=== PATIENT | female | born 1990 | race Caucasian/White ===

== ENCOUNTER 2016-05-20 13:59 | Emergency (ER) | payer OTHER, BC ==
--- NOTE | 2016-05-20 14:29 | EDM.PDOC ---
ED HPI GENERAL MEDICAL PROBLEM - General Chief Complaint: Chest Pain Stated Complaint: CHEST PAIN Time Seen by Provider: 05/20/16 14:20 - History of Present Illness INITIAL COMMENTS - FREE TEXT/NARRATIVE: HISTORY AND PHYSICAL: History of present illness: Patient is a 25-year-old female who presents with shortness of breath and chest pain patient is approximately 28 weeks she denies abdominal pain vaginal discharge bleeding back pain or other concerns she denies history of DVT or pulmonary embolism she denies history of asthma or any lung disease she' s had no fever chills nausea, or other complaints. Review of systems: As per history of present illness and below otherwise all systems reviewed and negative. Past medical history: As per history of present illness and as reviewed below otherwise noncontributory. Surgical history: As per history of present illness and as reviewed below otherwise noncontributory. Social history: No reported history of drug or alcohol abuse. Family history: As per history of present illness and as reviewed below otherwise noncontributory. Physical exam: HEENT: Atraumatic, normocephalic, pupils reactive, negative for conjunctival pallor or scleral icterus, mucous membranes moist, throat clear, neck supple, nontender, trachea midline. Lungs: Clear to auscultation, breath sounds equal bilaterally, chest nontender. Heart: S1S2, regular, negative for clicks, rubs, or JVD. Abdomen: Soft, gravid uterus consistent with dates nontender. Negative for masses or hepatosplenomegaly. Negative for costovertebral tenderness. Pelvis: Stable nontender. Genitourinary: Deferred. Rectal: Deferred. Extremities: Atraumatic, negative for cords or calf pain. Neurovascular unremarkable. Neuro: Awake, alert, oriented. Cranial nerves II through XII unremarkable. Cerebellum unremarkable. Motor and sensory unremarkable throughout. Exam nonfocal. Diagnostics: CBC CMP EKG tocograph monitoring CT Yessi chest rule out PE Therapeutics: IV O2 monitor Impression: #1 3 trimester #2 chest pain with dyspnea Definitive disposition and diagnosis as appropriate pending reevaluation and review of above. chest pain Pain Score (Numeric/FACES): 6 - Related Data Allergies Allergy/AdvReac Type Severity Reaction Status Date / Time No Known Allergies Allergy Verified 05/20/16 14:08 Home Meds: Home Meds . 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 ED EXAM, GENERAL - Physical Exam Exam: See Below (See dictation) Course - Vital Signs Text/Narrative:: Case was discussed with private DATA SECURITY COORDINATOR doctor Savanna who agrees with evaluation for pulmonary embolism inclusive of appropriate studies in this case CT angiography chest per PE protocol I discussed with DATA SECURITY COORDINATOR he discussion of risk- benefit and related issues with patient and family. Patient has yet to decide decision regarding diagnostics. Last Recorded V/S: Last Vital Signs Temp 36.5 C 05/20/16 14:10 Pulse 87 05/20/16 14:10 Resp 24 H 05/20/16 14:10 BP 124/79 05/20/16 14:10 Pulse Ox 98 05/20/16 14:10 - Orders/Labs/Meds Orders: Active Orders 24 hr Category Date Time Status Cardiac Monitoring [RC] . DIRECTED Care 05/20/16 14:41 Active EKG Documentation Completion [RC] STAT Care 05/20/16 14:04 Active Labs: Laboratory Tests 05/20/16 05/20/16 Range/Units 14:13 14:13 WBC 14.45 H (4.0-11.0) K/uL RBC 4.23 L (4.30-5.90) M/uL Hgb 11.6 L (12.0-16.0) g/dL Hct 35.3 L (36.0-46.0) % MCV 83.5 (80.0-98.0) fL MCH 27.4 (27.0-32.0) pg MCHC 32.9 (31.0-37.0) g/dL RDW Std Deviation 40.8 (28.0-62.0) fl RDW Coeff of Beth 14 (11.0-15.0) % Plt Count 286 (150-400) K/uL MPV 10.10 (7.40-12.00) fL Neut % (Auto) 79.6 (48.0-80.0) % Lymph % (Auto) 13.6 L (16.0-40.0) % [place] % (Auto) 5.5 (0.0-15.0) % Eos % (Auto) 1.2 (0.0-7.0) % Baso % (Auto) 0.1 (0.0-1.5) % Neut # (Auto) 11.5 H (1.4-5.7) K/uL Lymph # (Auto) 2.0 (0.6-2.4) K/uL [place] # (Auto) 0.8 (0.0-0.8) K/uL Eos # (Auto) 0.2 (0.0-0.7) K/uL Baso # (Auto) 0.0 (0.0-0.1) K/uL Nucleated RBC % 0.0 /100WBC Nucleated RBCs # 0 K/uL Sodium 137 (136-146) mmol/L Potassium 3.5 (3.5-5.1) mmol/L Chloride 105 (98-110) mmol/L Carbon Dioxide 23 (21-31) mmol/L BUN 7 (6.0-23.0) mg/dL Creatinine 0.7 (0.6-1.5) mg/dL Est Cr Clr Drug Dosing 120.51 mL/min Estimated GFR (MDRD) > 60.0 ml/min Glucose 99 (60-110) mg/dL Calcium 9.4 (8.8-10.8) mg/dL Total Bilirubin 0.3 (0.1-1.5) mg/dL AST 12 (5-40) IU/L ALT 10 (8-54) IU/L Alkaline Phosphatase 98 (40-150) Total Protein 7.2 (6.0-8.0) g/dL Albumin 3.6 (3.5-5.0) g/dL Globulin 3.6 H (2.0-3.5) g/dL Albumin/Globulin Ratio 1.0 L (1.3-2.8) Departure - Departure Time of Disposition: 16:03 Disposition: Home, Self-Care 01 Condition: good Clinical Impression: Atypical chest pain, Third trimester Forms: ED Department Discharge Additional Instructions: The following information is given to patients seen in the emergency department who are being discharged to home. This information is to outline your options for follow-up care. We provide all patients seen in our emergency department with a follow-up referral. The need for follow-up, as well as the timing and circumstances, are variable depending upon the specifics of your emergency department visit. If you don't have a primary care physician on staff, we will provide you with a referral. We always advise you to contact your personal physician following an emergency department visit to inform them of the circumstance of the visit and for follow-up with them and/or the need for any referrals to a consulting specialist. The emergency department will also refer you to a specialist when appropriate. This referral assures that you have the opportunity for followup care with a specialist. All of these measure are taken in an effort to provide you with optimal care, which includes your followup. Under all circumstances we always encourage you to contact your private physician who remains a resource for coordinating your care. When calling for followup care, please make the office aware that this follow-up is from your recent emergency room visit. If for any reason you are refused follow-up, please contact the [facility] emergency department at and asked to speak to the emergency department charge nurse. Followup primary medical doctor/OB gynecology push fluids continue routine care return as needed as discussed - My Orders Last 24 Hours: My Active Orders 05/20/16 14:04 EKG Documentation Completion [RC] STAT 05/20/16 14:41 Cardiac Monitoring [RC] . DIRECTED - Assessment/Plan Last 24 Hours: My Active Orders 05/20/16 14:04 EKG Documentation Completion [RC] STAT 05/20/16 14:41 Cardiac Monitoring [RC] . DIRECTED
[2016-05-20 15:02] LABS: CHLORIDE,CL 105 mmol/L (98-110); SODIUM,NA 137 mmol/L (136-146)
--- NOTE | 2016-05-20 15:39 | CT ---
EXAMINATION: CTA chest HISTORY: PE COMPARISON: None TECHNIQUE: Axial CT images were obtained through the chest following the administration of 40 mL of Isovue-370 in the left antecubital fossa. Coronal and sagittal reconstructions obtained. FINDINGS: There is adequate opacification of the pulmonary arteries, however breathing motion obscur es fine detail. The main and central pulmonary arteries appear patent. No focal consolidation, pleur al effusion, or pneumothorax. The heart is normal in size without a pericardial effusion. No mediast inal or hilar lymphadenopathy. No axillary lymphadenopathy. The central airways are clear. No suspicious osseous abnormalities identified. IMPRESSION: 1. No pulmonary embolism identified. 2. No acute cardiopulmonary findings.
[2016-05-20 16:35] VITALS: BP 112/70
== END 2016-05-20 16:32 | disposition home or self-care (01) ==
LOC: MW.ED 13:59
DX: O99.513 Diseases of the respiratory system complicating pregnancy, third trimester (principal); R07.89 Other chest pain; Z3A.28 28 weeks gestation of pregnancy; Z90.49 Acquired absence of other specified parts of digestive tract
CPT/HCPCS: 36415; 59025; 71275; 71275-26; 80053; 85025; 93005; 99283; 99285-25

== ENCOUNTER 2016-08-04 16:21 | Inpatient (IN) | payer BC, OTHER ==
[2016-08-04] MEDS ORDERED: Lidocaine 1% 50 ML MDV INJECT PRN (17:01)
[2016-08-04] MEDS ORDERED: Misoprostol 200 MCG Tab PO PRN (17:01)
[2016-08-04] MEDS ORDERED: Sodium Chloride 0.9% 10 ML Syringe FLUSH PRN (17:01)
[2016-08-04] MEDS ORDERED: Sodium Chloride 0.9% 2.5 ML Syringe FLUSH PRN (17:01)
[2016-08-04] MEDS ORDERED: Carboprost Tromethamine 250 MCG/1 ML Amp IM PRN (17:01)
[2016-08-04] MEDS ORDERED: Nalbuphine 10 MG/1 ML Vial IVPUSH PRN (17:01)
[2016-08-04] MEDS ORDERED: Methylergonovine 0.2 MG/1 ML Amp IM PRN (17:01)
[2016-08-04] MEDS ORDERED: Butorphanol 1 MG/ML SDV IVPUSH PRN (17:01)
[2016-08-04] MEDS ORDERED: Water For Irrigation,Sterile 1,000 ML Container IRR PRN (17:01)
[2016-08-04] MEDS ORDERED: Oxytocin/Lactated Ringers 30 UNIT/500 ML BAG IV SCH ×2 (17:15→19:45)
[2016-08-04] MEDS ORDERED: Ampicillin 2 GM in Sodium Chloride 0.9% 100 ML IV ONE (18:00)
[2016-08-04 18:34] LABS: CHLORIDE,CL 107 mmol/L (98-110); SODIUM,NA 136 mmol/L (136-146)
[2016-08-04] MEDS ORDERED: Misoprostol 25 MCG (1/4 of 100 MCG) Tab VAG PRN ×2 (19:38→20:29)
[2016-08-04] MEDS ORDERED: Terbutaline 1 MG/ML SDV SUBCUT PRN (19:38)
[2016-08-04] MEDS ORDERED: Misoprostol 50 MCG (1/2 of 100 MCG) Tab VAG SCH (19:45)
[2016-08-04] MEDS: Lactated Ringers 1,000 ML IV SCH (22:00)
[2016-08-04] MEDS: Ampicillin 1 GM in Sodium Chloride 0.9% 50 ML IV SCH (22:00)
[2016-08-05] MEDS ORDERED: Oxytocin/Lactated Ringers 30 UNIT/500 ML BAG IV SCH (01:15)
[2016-08-05] MEDS: Ampicillin 1 GM in Sodium Chloride 0.9% 50 ML IV SCH ×5 (02:00→18:50)
[2016-08-05] MEDS: Lactated Ringers 1,000 ML IV SCH ×3 (08:59→17:01)
[2016-08-05] MEDS ORDERED: fentaNYL 100 MCG/2 ML SDV ONE (10:02)
[2016-08-05] MEDS ORDERED: Ropivacaine 0.2% 2 MG/ML 20 ML SDV ONE (10:03)
[2016-08-05] MEDS ORDERED: Ampicillin 1 GM in Sodium Chloride 0.9% 50 ML IV SCH ×4 (10:45)
--- NOTE | 2016-08-05 11:10 | PCM.PREANE ---
Preanesthetic Assessment - Procedure Proposed Procedure: Continuous labor epidural - Anesthesia/Transfusion/Family Hx Anesthesia History: Prior Anesthesia Without Reaction Family History of Anesthesia Reaction: No Transfusion History: No Prior Transfusion(s) - Review of Systems General: No Symptoms Pulmonary: No Symptoms Cardiovascular: No Symptoms Gastrointestinal: No symptoms Neurological: No Symptoms Other: Reports: None - Physical Assessment NPO Status Date: 08/05/16 NPO Status Time: 11:02 (cl liquids now) Height: 1.7 m Weight: 108.862 kg ASA Class: 3 Mental Status: Alert & Oriented x3 Airway Class: Mallampati = 3 Dentition: Reports: Normal Dentition Thyro-Mental Finger Breadths: 3 Mouth Opening Finger Breadths: 3 ROM/Head Extension: Full Lungs: Clear to auscultation, Normal respiratory effort Cardiovascular: Regular Rate - Lab Values: Laboratory Last Values WBC 11.89 K/uL (4.0-11.0) H 08/04/16 17:45 RBC 4.13 M/uL (4.30-5.90) L 08/04/16 17:45 Hgb 11.0 g/dL (12.0-16.0) L 08/04/16 17:45 Hct 33.8 % (36.0-46.0) L 08/04/16 17:45 MCV 81.8 fL (80.0-98.0) 08/04/16 17:45 MCH 26.6 pg (27.0-32.0) L 08/04/16 17:45 MCHC 32.5 g/dL (31.0-37.0) 08/04/16 17:45 RDW Std Deviation 42.4 fl (28.0-62.0) 08/04/16 17:45 RDW Coeff of Beth 14 % (11.0-15.0) 08/04/16 17:45 Plt Count 260 K/uL (150-400) 08/04/16 17:45 MPV 10.80 fL (7.40-12.00) 08/04/16 17:45 Nucleated RBC % 0.0 /100WBC 08/04/16 17:45 Nucleated RBCs # 0 K/uL 08/04/16 17:45 Sodium 136 mmol/L (136-146) 08/04/16 17:45 Potassium 3.9 mmol/L (3.5-5.1) 08/04/16 17:45 Chloride 107 mmol/L (98-110) 08/04/16 17:45 Carbon Dioxide 17 mmol/L (21-31) L 08/04/16 17:45 BUN 10 mg/dL (6.0-23.0) 08/04/16 17:45 Creatinine 0.7 mg/dL (0.6-1.5) 08/04/16 17:45 Est Cr Clr Drug Dosing 119.47 mL/min 08/04/16 17:45 Estimated GFR (MDRD) > 60.0 ml/min 08/04/16 17:45 Glucose 83 mg/dL (60-110) 08/04/16 17:45 Uric Acid 3.6 mg/dL (2.1-6.2) 08/04/16 17:45 Calcium 9.5 mg/dL (8.8-10.8) 08/04/16 17:45 Total Bilirubin 0.2 mg/dL (0.1-1.5) 08/04/16 17:45 AST 16 IU/L (5-40) 08/04/16 17:45 ALT 10 IU/L (8-54) 08/04/16 17:45 Alkaline Phosphatase 117 (40-150) 08/04/16 17:45 Total Protein 6.6 g/dL (6.0-8.0) 08/04/16 17:45 Albumin 3.4 g/dL (3.5-5.0) L 08/04/16 17:45 Globulin 3.2 g/dL (2.0-3.5) 08/04/16 17:45 Albumin/Globulin Ratio 1.1 (1.3-2.8) L 08/04/16 17:45 Blood Type A POSITIVE 08/04/16 17:45 Antibody Screen NEGATIVE 08/04/16 17:45 - Allergies Allergies/Adverse Reactions: Allergies Allergy/AdvReac Type Severity Reaction Status Date / Time No Known Allergies Allergy Verified 07/25/16 11:31 - Blood Blood Available: Yes Product(s) Available: PRBC - Acknowledgements Anesthesia Type Planned: Epidural Pt an Appropriate Candidate for the Planned Anesthesia: Yes Alternatives and Risks of Anesthesia Discussed w Pt/Guardian: Yes Pt/Guardian Understands and Agrees with Anesthesia Plan: Yes PreAnesthesia Questionnaire Cardiovascular History: Reports: Hypertension ( induced) 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: - Past Surgical History GI Surgical History: Reports: Appendectomy Musculoskeletal Surgical History: Reports: Ganglion Cyst, Other (See Below) Other Musculoskeletal Surgeries/Procedures:: cyst removal on both wrists - SUBSTANCE USE Smoking Status *Q: Never Smoker Recreational Drug Use History: No - HOME MEDS Home Medications: Home Meds Vit W-Ca,Fe,FA(<1 mg) [ Vitamins] 1 tab PO DAILY 07/25/16 [ History] - CURRENT (IN HOUSE) MEDS Current Meds: Current Medications Butorphanol Tartrate (Stadol) 1 mg IVPUSH Q1H PRN PRN Reason: Pain Last Admin: 08/05/16 08:01 Dose: 1 mg Carboprost Tromethamine (Hemabate Ds) 250 mcg IM ASDIRECTED PRN PRN Reason: Post Hemorrhage Lactated Ringer's (Ringers, Lactated) 1,000 mls @ 150 mls/hr IV ASDIRECTED MARY ANN Last Admin: 08/05/16 10:54 Dose: 150 mls/hr Oxytocin/Lactated Ringer's (Pitocin In Lr 30 Units/500 Ml) 30 unit in 500 mls @ 2 mls/hr IV TITRATE MARY ANN; 2 MUNITS/MIN PRN Reason: Protocol Stop: 08/05/16 17:14 Oxytocin/Lactated Ringer's (Pitocin In Lr 30 Units/500 Ml) 30 unit in 500 mls @ 2 mls/hr IV TITRATE MARY ANN; 2 MUNITS/MIN PRN Reason: Protocol Last Titration: 08/05/16 07:46 Dose: 10 munits/min, 10 mls/hr Ampicillin Sodium 1 gm/ Sodium (Chloride) 50 mls @ 100 mls/hr IV Q4H MARY ANN Lidocaine HCl (Xylocaine 1%) 50 ml INJECT .ONCE PRN PRN Reason: Laceration repair Methylergonovine Maleate (Methergine) 0.2 mg IM ASDIRECTED PRN PRN Reason: Post Hemorrhage Misoprostol (Cytotec) 200 mcg PO .ONCE PRN PRN Reason: Post Hemorrhage Misoprostol (Cytotec) 25 mcg VAG Q4H PRN PRN Reason: Other Last Admin: 08/04/16 20:37 Dose: 25 mcg Sodium Chloride (Saline Flush) 10 ml FLUSH ASDIRECTED PRN PRN Reason: Keep Vein Open Sodium Chloride (Saline Flush) 2.5 ml FLUSH ASDIRECTED PRN PRN Reason: Keep Vein Open Sterile Water (Sterile Water For Irrigation) 1,000 ml IRR ASDIRECTED PRN PRN Reason: delivery Discontinued Medications Fentanyl (Sublimaze) Confirm Administered Dose 100 mcg .ROUTE .STK-MED ONE Stop: 08/05/16 10:03 Ampicillin Sodium 1 gm/ Sodium (Chloride) 50 mls @ 100 mls/hr IV Q4H [facility] Last Admin: 08/05/16 06:08 Dose: 100 mls/hr Ampicillin Sodium 2 gm/ Sodium (Chloride) 100 mls @ 200 mls/hr IV ONETIME ONE Stop: 08/04/16 18:29 Last Admin: 08/04/16 17:59 Dose: 200 mls/hr Oxytocin/Lactated Ringer's (Pitocin In Lr 30 Units/500 Ml) 30 unit in 500 mls @ 2 mls/hr IV TITRATE MARY ANN; 2 MUNITS/MIN PRN Reason: Protocol Last Admin: 08/05/16 00:55 Dose: 2 munits/min, 2 mls/hr Ropivacaine/Fentanyl/NS (Fentanyl 2 Mcg-Ropiv 0.2%-Ns) Confirm Administered Dose 100 mls @ as directed .ROUTE .ST-MED ONE Stop: 08/05/16 10:03 Ampicillin Sodium 1 gm/ Sodium (Chloride) 50 mls @ 100 mls/hr IV Q4H MARY ANN Ampicillin Sodium 1 gm/ Sodium (Chloride) 50 mls @ 100 mls/hr IV Q4H MARY ANN Misoprostol (Cytotec) 25 mcg VAG Q4H MARY ANN Misoprostol (Cytotec) 25 mcg VAG Q4H PRN PRN Reason: Cervical Ripening Stop: 08/05/16 23:39 Nalbuphine HCl (Nubain) 10 mg IVPUSH Q1H PRN PRN Reason: Pain (severe 7-10) Stop: 08/04/16 19:02 Ropivacaine (Naropin 0.2%) Confirm Administered Dose 20 ml .ROUTE .STK-MED ONE Stop: 08/05/16 10:04 Terbutaline Sulfate (Brethine) 0.25 mg SUBCUT ASDIRECTED PRN PRN Reason: Tacysystole - Free Text/Narrative Note: Labor Analgesia/Epidural Procedure start date: 08/05/16 time: 1005 Attending provider aware Chart reviewed Permit signed Labs reviewed VS/ FHR reviewed Pt identified/ID band Pt assessed Risks/Benefits discussed and accepted Monitors in place (BP, HR, SPO2) Patient, Site, Procedure Verification, Pause. Pain "10/10" Pt writhing with contractions. Fluid bolus infused (fluid type and amount): LR 1000 ml infused with ongoing infusion Position: Sitting @ 1014 Prep: Betadine X 3 Sterile Drape Intradermal Wheal: 3 ml 1% Lidocaine followed by 2 ml 1% lidocaine Regional placement level: L4-5 Needle: 17 g Tuohy Approach: Midline Technique: NOEMI glass syringe w 3 ml Sterile water NOEMI needle depth: 6 cm Paresthesia: None Fluid Obtained: None Catheter insertion time: 1023 Catheter depth at skin: 20 cm Test Dose Time: 1023 RX: 3 ml 1.5% lidocaine with 1:200,000 epi Response: Negative Loading dose Time: 9485-4482 RX: 100 mcg fentanyl followed by 10 ml 0.2% ropivacaine in 2 ml increments over 8 minutes Pt position: semi fowlers with CHANA Continuous infusion Start Time: 1048 RX: 100 ml 0.2% ropivacaine with 2mcg/ml fentanyl Continuous infusion rate: 8 ml per hour POWER LINEWORKER bolus option: 5 ml q 15 min Pt response Post procedure pain level: "0/10" Pt in extreme pain, barely able to speak and not able to maintain good position for placement. L4-5 accessed on second attempt with additional LA intradermal wheal. No CSF or heme observed. No parasthesia. VS and FHR monitored in unit post placement (See OB traceview for documentation. ) Procedure end date: 08/05/16 time: 1115
[2016-08-05] MEDS ORDERED: Witch Hazel Medicated Pads 40/Jar TOP PRN (23:10)
[2016-08-05] MEDS ORDERED: Lanolin 100% Cream 7 GM Tube TOP PRN (23:10)
[2016-08-05] MEDS ORDERED: Docusate Sodium 100 MG Cap PO PRN (23:10)
[2016-08-05] MEDS ORDERED: Ibuprofen 400 MG Tab PO PRN (23:10)
[2016-08-05] MEDS ORDERED: Simethicone 80 MG Tab.Chew PO PRN (23:10)
[2016-08-05] MEDS ORDERED: Aluminum Hydroxide/Magnesium Hydroxide/Simethicone Susp 30 ML Cup PO PRN (23:10)
[2016-08-05] MEDS ORDERED: Benzocaine/Menthol 20%-0.5% Spray 78 GM Cannister TOP PRN (23:10)
[2016-08-05] MEDS ORDERED: Bisacodyl 10 MG Supp RECTAL PRN (23:10)
[2016-08-05] MEDS ORDERED: Acetaminophen 500 MG Tab PO PRN ×2 (23:10)
[2016-08-06] MEDS: Ibuprofen 800 MG Tab PO PRN ×2 (04:19→09:57)
[2016-08-06] MEDS: oxyCODONE 5 MG Tab PO PRN ×2 (09:57→17:00)
--- NOTE | 2016-08-06 11:03 | PCM.PNPP ---
- General Info Date of Service: 08/06/16 Functional Status: Reports: pain controlled, tolerating diet, ambulating, urinating - Review of Systems General: Denies: Fever, Weakness Pulmonary: Denies: shortness of breath Cardiovascular: Denies: Chest Pain, Palpitations, Lightheadedness Gastrointestinal: Denies: Abdominal pain, Nausea, Vomiting Genitourinary: Denies: flank pain Psychiatric: Reports: no symptoms - General Info Date of Service: 08/06/16 - Patient Data Vital Signs - most recent: Last Vital Signs Temp 37.2 C 08/06/16 04:00 Pulse 110 H 08/06/16 04:00 Resp 15 08/06/16 04:00 BP 131/69 08/06/16 04:00 Pulse Ox 95 08/06/16 04:00 Weight - most recent: 108.862 kg I&O - last 24 hours: Intake & Output 08/05/16 08/06/16 08/06/16 22:59 06:59 14:59 Output Total 775 Balance -775 Lab Results - last 24 hrs: Laboratory Results - last 24 hr 08/06/16 Range/Units 05:45 Hgb 9.6 L (12.0-16.0) g/dL Hct 28.5 L (36.0-46.0) % Med Orders - Current: Current Medications Acetaminophen (Tylenol Extra Strength) 500 mg PO Q4H PRN PRN Reason: Pain Acetaminophen (Tylenol Extra Strength) 1,000 mg PO Q4H PRN PRN Reason: Pain Last Admin: 08/06/16 07:31 Dose: 1,000 mg Al Hydroxide/Mg Hydroxide (Mag-Al Plus) 30 ml PO Q8H PRN PRN Reason: Heartburn Benzocaine/Menthol (Dermoplast Pain Relief 20%-0.5% [place]) 78 gm TOP ASDIRECTED PRN PRN Reason: Perineal Comfort Measure Last Admin: 08/06/16 04:19 Dose: 1 spray Bisacodyl (Dulcolax) 10 mg RECTAL .ONCE PRN PRN Reason: Constipation Carboprost Tromethamine (Hemabate Ds) 250 mcg IM ASDIRECTED PRN PRN Reason: Post Hemorrhage Docusate Sodium (Colace) 100 mg PO BID PRN PRN Reason: Constipation Emollient Ointment (Lansinoh Hpa) 0 gm TOP ASDIRECTED PRN PRN Reason: Sore Nipples Lactated Ringer's (Ringers, Lactated) 1,000 mls @ 150 mls/hr IV ASDIRECTED MARY ANN Last Admin: 08/05/16 17:01 Dose: 150 mls/hr Oxytocin/Lactated Ringer's (Pitocin In Lr 30 Units/500 Ml) 30 unit in 500 mls @ 2 mls/hr IV TITRATE MARY ANN; 2 MUNITS/MIN PRN Reason: Protocol Last Titration: 08/05/16 18:47 Dose: 16 munits/min, 16 mls/hr Ibuprofen (Motrin) 400 mg PO Q4H PRN PRN Reason: Pain Ibuprofen (Motrin) 800 mg PO Q6H PRN PRN Reason: Pain Last Admin: 08/06/16 09:57 Dose: 800 mg Methylergonovine Maleate (Methergine) 0.2 mg IM ASDIRECTED PRN PRN Reason: Post Hemorrhage Oxycodone HCl (Oxycodone) 5 mg PO Q2H PRN PRN Reason: Pain Last Admin: 08/06/16 09:57 Dose: 5 mg Simethicone (Simethicone) 80 mg PO Q4H PRN PRN Reason: Gas Sodium Chloride (Saline Flush) 2.5 ml FLUSH ASDIRECTED PRN PRN Reason: Keep Vein Open Witch Hollie (Tucks) 1 pad TOP ASDIRECTED PRN PRN Reason: comfort care Last Admin: 08/06/16 04:18 Dose: 1 pad Discontinued Medications Butorphanol Tartrate (Stadol) 1 mg IVPUSH Q1H PRN PRN Reason: Pain Last Admin: 08/05/16 08:01 Dose: 1 mg Fentanyl (Sublimaze) Confirm Administered Dose 100 mcg .ROUTE .STK-MED ONE Stop: 08/05/16 10:03 Ampicillin Sodium 1 gm/ Sodium (Chloride) 50 mls @ 100 mls/hr IV Q4H MARY ANN Last Admin: 08/05/16 06:08 Dose: 100 mls/hr Ampicillin Sodium 2 gm/ Sodium (Chloride) 100 mls @ 200 mls/hr IV ONETIME ONE Stop: 08/04/16 18:29 Last Admin: 08/04/16 17:59 Dose: 200 mls/hr Oxytocin/Lactated Ringer's (Pitocin In Lr 30 Units/500 Ml) 30 unit in 500 mls @ 2 mls/hr IV TITRATE MARY ANN; 2 MUNITS/MIN PRN Reason: Protocol Stop: 08/05/16 17:14 Oxytocin/Lactated Ringer's (Pitocin In Lr 30 Units/500 Ml) 30 unit in 500 mls @ 2 mls/hr IV TITRATE MARY ANN; 2 MUNITS/MIN PRN Reason: Protocol Last Admin: 08/05/16 00:55 Dose: 2 munits/min, 2 mls/hr Ropivacaine/Fentanyl/NS (Fentanyl 2 Mcg-Ropiv 0.2%-Ns) Confirm Administered Dose 100 mls @ as directed .ROUTE .STK-MED ONE Stop: 08/05/16 10:03 Ampicillin Sodium 1 gm/ Sodium (Chloride) 50 mls @ 100 mls/hr IV Q4H MARY ANN Ampicillin Sodium 1 gm/ Sodium (Chloride) 50 mls @ 100 mls/hr IV Q4H MARY ANN Ampicillin Sodium 1 gm/ Sodium (Chloride) 50 mls @ 100 mls/hr IV Q4H MARY ANN Last Admin: 08/05/16 18:50 Dose: 100 mls/hr Ropivacaine/Fentanyl/NS (Fentanyl 2 Mcg-Ropiv 0.2%-Ns) Confirm Administered Dose 100 mls @ as directed .ROUTE .STK-MED ONE Stop: 08/05/16 21:44 Lidocaine HCl (Xylocaine 1%) 50 ml INJECT .ONCE PRN PRN Reason: Laceration repair Last Admin: 08/05/16 22:58 Dose: 50 ml Misoprostol (Cytotec) 200 mcg PO .ONCE PRN PRN Reason: Post Hemorrhage Misoprostol (Cytotec) 25 mcg VAG Q4H MARY ANN Misoprostol (Cytotec) 25 mcg VAG Q4H PRN PRN Reason: Cervical Ripening Stop: 08/05/16 23:39 Misoprostol (Cytotec) 25 mcg VAG Q4H PRN PRN Reason: Other Last Admin: 08/04/16 20:37 Dose: 25 mcg Nalbuphine HCl (Nubain) 10 mg IVPUSH Q1H PRN PRN Reason: Pain (severe 7-10) Stop: 08/04/16 19:02 Ropivacaine (Naropin 0.2%) Confirm Administered Dose 20 ml .ROUTE .STGiggle-MED ONE Stop: 08/05/16 10:04 Sodium Chloride (Saline Flush) 10 ml FLUSH ASDIRECTED PRN PRN Reason: Keep Vein Open Sterile Water (Sterile Water For Irrigation) 1,000 ml IRR ASDIRECTED PRN PRN Reason: delivery Last Admin: 08/05/16 22:59 Dose: 1,000 ml Terbutaline Sulfate (Brethine) 0.25 mg SUBCUT ASDIRECTED PRN PRN Reason: Tacysystole - Infant Interaction Support Person: - Recovery Exam Fundal Tone: Firm Fundal Level: 2 Fingerbreadths Below Umbilicus Fundal Placement: Midline Lochia Amount: Scant Lochia Color: Rubra/Red Perineum Description: Edematous Episiotomy/Laceration: Approximated Bladder Status: Nonpalpable Urinary Elimination: Voided - Exam General: alert, oriented Lungs: Normal respiratory effort Cardiovascular: Regular Rate, Regular Rhythm Abdomen: bowel sounds present, soft. No: CVA tenderness Extremities: no calf tenderness Skin: warm, dry, intact Psy/Mental Status: alert, normal affect - Problem List & Annotations (1) Vaginal delivery SNOMED Code(s): 434248297 Code(s): O80 - ENCOUNTER FOR FULL-TERM UNCOMPLICATED DELIVERY Status: Acute Current Visit: Yes - Problem List Review Problem List Initiated/Reviewed/Updated: Yes - My Orders Last 24 Hours: My Active Orders 08/05/16 23:10 Patient Status [ADT] Routine May Shower [RC] ASDIRECTED Up ad Zoë [RC] ASDIRECTED Vital Signs [RC] PER UNIT ROUTINE Acetaminophen [Tylenol Extra Strength] 1,000 mg PO Q4H PRN Acetaminophen [Tylenol Extra Strength] 500 mg PO Q4H PRN Alum Hydrox/Mag Hydrox/Simeth [Mag-Al Plus] 30 ml PO Q8H PRN Benzocaine/Menthol [Dermoplast Pain Relief 20%-0.5% [place]] 78 gm TOP ASDIRECTED PRN Bisacodyl [Dulcolax] 10 mg RECTAL .ONCE PRN Docusate Sodium [Colace] 100 mg PO BID PRN Ibuprofen [Motrin] 400 mg PO Q4H PRN Ibuprofen [Motrin] 800 mg PO Q6H PRN Lanolin [Lansinoh HPA] See Dose Instructions TOP ASDIRECTED PRN Simethicone 80 mg PO Q4H PRN Witch Hollie [Tucks] 1 pad TOP ASDIRECTED PRN oxyCODONE 5 mg PO Q2H PRN Assess Lochia [WOMSER] Per Unit Routine Assess Uterine Involution [WOMSER] Per Unit Routine Peripheral IV Discontinue [OM.PC] Routine 08/05/16 23:11 Ice Therapy [OM.PC] Per Unit Routine Perineal Care [OM.PC] Per Unit Routine Sitz Bath [OM.PC] Per Unit Routine 08/05/16 Dinner Regular Diet [DIET] - Assessment Assessment:: PPD 1 status post Gestational hypertension - Plan Plan:: Continue cares, continue to monitor blood pressures--have been reassuring overall.
--- NOTE | 2016-08-06 13:17 | PCM48HPAN ---
Post Anesthesia Note - EVALUATION WITHIN 48HRS OF ANESTHETIC Vital Signs in Normal Range: Yes Patient Participated in Evaluation: Yes Respiratory Function Stable: Yes Airway Patent: Yes Cardiovascular Function Stable: Yes Hydration Status Stable: Yes Pain Control Satisfactory: Yes Nausea and Vomiting Control Satisfactory: Yes Mental Status Recovered: Yes
[2016-08-07] MEDS: Ibuprofen 800 MG Tab PO PRN (00:15)
[2016-08-07 09:10] VITALS: BP 116/68
--- NOTE | 2016-08-07 09:25 | PCM.PNPP ---
- General Info Functional Status: Reports: pain controlled, tolerating diet, ambulating, urinating - Review of Systems General: Denies: Fever, Weakness Pulmonary: Denies: shortness of breath Cardiovascular: Denies: Chest Pain, Palpitations, Lightheadedness Gastrointestinal: Reports: Flatus. Denies: Nausea, Vomiting Genitourinary: Denies: flank pain Neurological: Reports: No Symptoms - General Info Date of Service: 08/07/16 - Patient Data Vital Signs - most recent: Last Vital Signs Temp 36.7 C 08/07/16 08:30 Pulse 81 08/07/16 08:30 Resp 16 08/07/16 08:30 BP 116/68 08/07/16 08:30 Pulse Ox 95 08/07/16 08:30 Weight - most recent: 108.862 kg Med Orders - Current: Current Medications Acetaminophen (Tylenol Extra Strength) 500 mg PO Q4H PRN PRN Reason: Pain Acetaminophen (Tylenol Extra Strength) 1,000 mg PO Q4H PRN PRN Reason: Pain Last Admin: 08/06/16 07:31 Dose: 1,000 mg Al Hydroxide/Mg Hydroxide (Mag-Al Plus) 30 ml PO Q8H PRN PRN Reason: Heartburn Benzocaine/Menthol (Dermoplast Pain Relief 20%-0.5% Pitcher) 78 gm TOP ASDIRECTED PRN PRN Reason: Perineal Comfort Measure Last Admin: 08/06/16 04:19 Dose: 1 spray Bisacodyl (Dulcolax) 10 mg RECTAL .ONCE PRN PRN Reason: Constipation Carboprost Tromethamine (Hemabate Ds) 250 mcg IM ASDIRECTED PRN PRN Reason: Post Hemorrhage Docusate Sodium (Colace) 100 mg PO BID PRN PRN Reason: Constipation Emollient Ointment (Lansinoh Hpa) 0 gm TOP ASDIRECTED PRN PRN Reason: Sore Nipples Lactated Ringer's (Ringers, Lactated) 1,000 mls @ 150 mls/hr IV ASDIRECTED MARY ANN Last Admin: 08/05/16 17:01 Dose: 150 mls/hr Oxytocin/Lactated Ringer's (Pitocin In Lr 30 Units/500 Ml) 30 unit in 500 mls @ 2 mls/hr IV TITRATE MARY ANN; 2 MUNITS/MIN PRN Reason: Protocol Last Titration: 08/05/16 18:47 Dose: 16 munits/min, 16 mls/hr Ibuprofen (Motrin) 400 mg PO Q4H PRN PRN Reason: Pain Ibuprofen (Motrin) 800 mg PO Q6H PRN PRN Reason: Pain Last Admin: 08/07/16 00:15 Dose: 800 mg Methylergonovine Maleate (Methergine) 0.2 mg IM ASDIRECTED PRN PRN Reason: Post Hemorrhage Oxycodone HCl (Oxycodone) 5 mg PO Q2H PRN PRN Reason: Pain Last Admin: 08/06/16 17:00 Dose: 5 mg Simethicone (Simethicone) 80 mg PO Q4H PRN PRN Reason: Gas Sodium Chloride (Saline Flush) 2.5 ml FLUSH ASDIRECTED PRN PRN Reason: Keep Vein Open Witch Hollie (Tucks) 1 pad TOP ASDIRECTED PRN PRN Reason: comfort care Last Admin: 08/06/16 04:18 Dose: 1 pad Discontinued Medications Butorphanol Tartrate (Stadol) 1 mg IVPUSH Q1H PRN PRN Reason: Pain Last Admin: 08/05/16 08:01 Dose: 1 mg Fentanyl (Sublimaze) Confirm Administered Dose 100 mcg .ROUTE .[facility]-MED ONE Stop: 08/05/16 10:03 Last Admin: 08/06/16 21:02 Dose: Not Given Ampicillin Sodium 1 gm/ Sodium (Chloride) 50 mls @ 100 mls/hr IV Q4H MARY ANN Last Admin: 08/05/16 06:08 Dose: 100 mls/hr Ampicillin Sodium 2 gm/ Sodium (Chloride) 100 mls @ 200 mls/hr IV ONETIME ONE Stop: 08/04/16 18:29 Last Admin: 08/04/16 17:59 Dose: 200 mls/hr Oxytocin/Lactated Ringer's (Pitocin In Lr 30 Units/500 Ml) 30 unit in 500 mls @ 2 mls/hr IV TITRATE MARY ANN; 2 MUNITS/MIN PRN Reason: Protocol Stop: 08/05/16 17:14 Oxytocin/Lactated Ringer's (Pitocin In Lr 30 Units/500 Ml) 30 unit in 500 mls @ 2 mls/hr IV TITRATE MARY ANN; 2 MUNITS/MIN PRN Reason: Protocol Last Admin: 08/05/16 00:55 Dose: 2 munits/min, 2 mls/hr Ropivacaine/Fentanyl/NS (Fentanyl 2 Mcg-Ropiv 0.2%-Ns) Confirm Administered Dose 100 mls @ as directed .ROUTE .[facility]-MED ONE Stop: 08/05/16 10:03 Last Admin: 08/06/16 21:02 Dose: Not Given Ampicillin Sodium 1 gm/ Sodium (Chloride) 50 mls @ 100 mls/hr IV Q4H MARY ANN Ampicillin Sodium 1 gm/ Sodium (Chloride) 50 mls @ 100 mls/hr IV Q4H MARY ANN Ampicillin Sodium 1 gm/ Sodium (Chloride) 50 mls @ 100 mls/hr IV Q4H [facility] Last Admin: 08/05/16 18:50 Dose: 100 mls/hr Ropivacaine/Fentanyl/NS (Fentanyl 2 Mcg-Ropiv 0.2%-Ns) Confirm Administered Dose 100 mls @ as directed .ROUTE .[facility] ONE Stop: 08/05/16 21:44 Last Admin: 08/06/16 21:02 Dose: Not Given Lidocaine HCl (Xylocaine 1%) 50 ml INJECT .ONCE PRN PRN Reason: Laceration repair Last Admin: 08/05/16 22:58 Dose: 50 ml Misoprostol (Cytotec) 200 mcg PO .ONCE PRN PRN Reason: Post Hemorrhage Misoprostol (Cytotec) 25 mcg VAG Q4H MARY ANN Misoprostol (Cytotec) 25 mcg VAG Q4H PRN PRN Reason: Cervical Ripening Stop: 08/05/16 23:39 Misoprostol (Cytotec) 25 mcg VAG Q4H PRN PRN Reason: Other Last Admin: 08/04/16 20:37 Dose: 25 mcg Nalbuphine HCl (Nubain) 10 mg IVPUSH Q1H PRN PRN Reason: Pain (severe 7-10) Stop: 08/04/16 19:02 Ropivacaine (Naropin 0.2%) Confirm Administered Dose 20 ml .ROUTE .[facility]-MED ONE Stop: 08/05/16 10:04 Last Admin: 08/06/16 21:02 Dose: Not Given Sodium Chloride (Saline Flush) 10 ml FLUSH ASDIRECTED PRN PRN Reason: Keep Vein Open Sterile Water (Sterile Water For Irrigation) 1,000 ml IRR ASDIRECTED PRN PRN Reason: delivery Last Admin: 08/05/16 22:59 Dose: 1,000 ml Terbutaline Sulfate (Brethine) 0.25 mg SUBCUT ASDIRECTED PRN PRN Reason: Tacysystole - Interaction Support Person: - Recovery Exam Fundal Tone: Firm Fundal Level: 1 Fingerbreadths Below Umbilicus Fundal Placement: Midline Lochia Amount: Small Lochia Color: Rubra/Red Perineum Description: Edematous Episiotomy/Laceration: None Bladder Status: Voiding Urinary Elimination: Voided - Exam General: alert, oriented Lungs: Normal respiratory effort Cardiovascular: Regular Rate, Regular Rhythm Abdomen: bowel sounds present, soft. No: CVA tenderness Extremities: no calf tenderness Psy/Mental Status: alert, normal affect - Problem List & Annotations (1) Vaginal delivery SNOMED Code(s): 198473134 Code(s): O80 - ENCOUNTER FOR FULL-TERM UNCOMPLICATED DELIVERY Status: Acute Current Visit: Yes - Problem List Review Problem List Initiated/Reviewed/Updated: Yes - My Orders Last 24 Hours: My Active Orders 08/07/16 09:22 Ready for Discharge [RC] PER UNIT ROUTINE - Assessment Assessment:: PPD 2 status post Gestational hypertension - Plan Plan:: Patient is doing well overall--would like to go home today. Blood pressures have normalized. is going better today. Discharge instructions reviewed. Infection and bleeding warnings reviewed. Present for BP check at [facility] on day in town for appointment. She will also check BP every 3-4 days and call if >140/90.
--- NOTE | 2016-08-08 10:07 | OR ---
SURGEON: Yuki Cain M.D. DATE OF PROCEDURE: 08/05/2016 PREOPERATIVE DIAGNOSES: 1. A 39 and 2 weeks intrauterine . 2. Gestational hypertension. 3. Group beta strep positive. POSTOPERATIVE DIAGNOSES: 1. A 39 and 2 weeks intrauterine . 2. Gestational hypertension. 3. Group beta strep positive. PROCEDURE: 1. Spontaneous vaginal delivery. 2. Second-degree vaginal laceration repaired. ESTIMATED BLOOD LOSS: 350 mL. ANESTHESIA: Epidural/local. COMPLICATIONS: None. FINDINGS: Viable male, score 6 at 1 minute, 9 at 5 minutes. Weight of 7 pounds 10 ounces. Spontaneous delivery, intact placenta, 3-vessel cord. DISPOSITION: Infant to nursery, mom in LDRP, stable. PROCEDURE IN DETAIL: Caren is a 26-year-old G1, P0 at 39 and 1 week gestation when she presented to Labor and Delivery after being evaluated in the clinic during the day and found to have elevated blood pressures at term gestation. No protein in urine; however, blood pressures were significantly elevated in the 140s to 150s over 90s. Therefore, she was admitted and managed through the night by Dr. Mason. I assumed care the following morning at approximately 9:00 a.m. The patient at that time was breathing through contractions. Her blood pressures were stable and heart tones were in 130s with variability. She is group B beta strep positive receiving prophylaxis. She was on Pitocin and was progressing nicely. At that time, she was found to be 5 cm. The patient continued to progress through the afternoon. Shortly after 6:00 p.m., she was found to be 8 to 9 cm, 90% effaced, 0 station. heart tones 120s with variability. She began pushing efforts shortly at approximately 08:30 p.m. and shortly after 10:30, I was called for delivery. I was in-house at that time, came directly down the hallway, and the had actually already crowned in and the nurse was delivering the . I assumed delivery at this point. The remainder of body was delivered. The 's oropharynx and nares bulb suctioned. Cord was clamped x2 and cut. was handed off to attending nursing staff. Cord arterial, cord venous, cord blood was obtained. Light suprabpubic pressure was applied while the placenta was delivered spontaneously intact. Vigorous fundal uterine massage was applied while 30 units of Pitocin was delivered in 500 mL of IV fluid. Upon inspection of cervix, vaginal sidewalls, and perineum, there was found to be a second-degree vaginal laceration noted and this was repaired using 3-0 Vicryl in continuous running locked fashion after prepping the region with 1% lidocaine, a total of 10 mL of this was utilized. The patient tolerated this repair well. Her uterus remained firm. Sponge count and needle count correct was x2. The patient will remain in LDRP. Her blood pressures are normotensive at this time. She will go to remain in LDRP and infant in nursery. ANA / NESSA /[id number]
== END 2016-08-07 12:30 | disposition home or self-care (01) | DRG 560 ==
LOC: MW.OBCHECK 16:21 → MW.OB 16:23 → MW.OBCHECK 17:04 → MW.OB 17:04 → OBSVTOIN 08-05 22:43 → MW.OB 08-06 03:00
PROVIDERS: ADMIT Obstetrics & Gynecology; ATTEND Obstetrics & Gynecology
PROC: 10E0XZZ Delivery of Products of Conception, External Approach (ICD-10-PCS; principal; 2016-08-05)
PROC: 0KQM0ZZ Repair Perineum Muscle, Open Approach (ICD-10-PCS; 2016-08-05)
DX: O13.4 Gestational [pregnancy-induced] hypertension without significant proteinuria, complicating childbirth (principal); O70.1 Second degree perineal laceration during delivery; Z3A.39 39 weeks gestation of pregnancy; Z37.0 Single live birth; Z22.330 Carrier of Group B streptococcus
CPT/HCPCS: 01967; 01996; 36415; 51703; 59025; 80053; 84550; 85014; 85018; 85027; 86850; 86900; 86901; A9270-GY; J0290; J0595; J7030; J7050; J7120